=== PATIENT | male | born 1955 | race Caucasian/White ===

== ENCOUNTER 2025-01-22 16:08 | Emergency (ER) | payer MEDICARE, SELFPAY ==
[2025-01-22 16:11] VITALS: BP 164/101
[2025-01-22 16:26] LABS: % Basophils 0.5 % (0-2); % Immature Granulocytes 0.1 % (0-0.5); % Lymphocytes 33.1 % (20.5-51.1); % Monocytes 9.5 % (1.7-9.3); % Neutrophils 55.8 % (42.2-75.2); Absolute Eosinophils 0.1 10^3/uL (0-0.7); Absolute Lymphocytes 2.6 10^3/uL (1.2-3.4); Absolute Monocytes 0.8 10^3/uL (0.1-0.6); Absolute Neutrophils 4.5 10^3/uL (1.4-6.5); Hematocrit 39.1 % (39.0-52.0); Hemoglobin 13.1 g/dL (13.0-18.0); Mean Corp Hgb Conc. 33.5 g/dL (33.0-37.0); Mean Corpuscular Hgb 29.2 pg (27.0-31.0); Mean Corpuscular Volume 87.1 fL (80.0-94.0); Mean Platelet Volume 10.5 fL (7.4-10.4); Nucleated Red Blood Cells % 0 % (-); Platelet Count 219 10^3/uL (130-400); Red Blood Cell Count 4.49 10^6/uL (4.70-6.10); Red Cell Dist. Width 13.4 % (11.5-14.5)
[2025-01-22 16:40] LABS: ALT (SGPT) 20 U/L (0-50); AST (SGOT) 22 U/L (17-59); Albumin 4.4 g/dl (3.5-5.0); Alkaline Phosphatase 48 U/L (38-126); Blood Urea Nitrogen 17 mg/dl (9-20); Carbon Dioxide 27 mmol/L (22-30); Chloride 108 mmol/L (98-107); Glucose 108 mg/dl (70-99); Lipase 79 U/L (23-300); Potassium 4.3 mmol/L (3.5-5.1); Sodium 142 mmol/L (135-145); Total Bilirubin 0.3 mg/dl (0.2-1.3); Total Protein 7.6 g/dl (6.3-8.2); eGFR > 60.00
--- NOTE | 2025-01-22 19:15 | ED.GENMED ---
History of Present Illness
General
Chief Complaint: Abdominal Symptoms
Source: patient
Exam Limitations: none
Time Seen by Provider: 01/22/25 19:00
Nursing documentation reviewed up to this point in time: agreed with
History of Present Illness
History of Present Illness:
The patient is an 69-year-old man who reports that his picked wild mushrooms outside his home and cooked them. Patient reports that he consumed about 1 mushroom at around noon today. Patient reports that around 1:00 he developed frequent
episodes of nausea and vomiting. Patient reports it has been about 3 hours since he has had any vomiting. Patient reports he feels completely well at this time. He denies any fever, chest pain, and shortness of breath. He reports that his
also got sick around the same time and experienced dizziness, visual changes and 'felt drunk'. Patient denies headache and rash.
Past History
Past History
ED Past Medical History: None
ED Past Surgical History: Other
Social History
Tobacco: Non-smoker
Alcohol: Other
Drug: None
Personal:
Living: with family
Employment: Other
Family History
Family History: Other
Review of Systems
Review of Systems
Allergies reviewed?: Yes
All Other Systems: ROS reviewed and negative except as documented in HPI and ROS
Constitutional: Reports no symptoms
EENT: Reports no symptoms
Respiratory: Reports no symptoms
Cardiac: Reports no symptoms
ABD/GI: Reports nausea and vomiting
: Reports no symptoms
Musculoskeletal: Reports no symptoms
Skin: Reports no symptoms
Neurological: Reports no symptoms
Endocrine: Reports no symptoms
Hematologic/Lymphatic: Reports no symptoms
Psychiatric: Reports no symptoms
Phy Exam
Physical Exam
Physical Exam:
Physical Exam
General: no apparent distress, not acutely ill. Well appearing, smiling and conversational
Neck: supple. no meningeal signs. normal psoterior pharynx
Heart: s1/s2 regular rate and rhythm, no murmur. equal radial pulses.
Lungs: no acute respiratory distress. clear bilaterally
Abdomen: normal bowel sounds. not tender. no CVAT. Soft, nondistended and nontender throughout
Neuro: alert and oriented. no focal neurological deficits
Skin: no rash
Psychiatric: well kept. interactive and cooperative
Extremities: no edema. no calf tenderness. negative homans. good distal pulses
Course
Orders/Labs/Results
Orders:
Orders
01/22/25 16:18
Complete Blood Count/With Diff Urgent
Comprehensive Metabolic Panel Urgent
Lipase Urgent
Abnormal Lab Results
01/22/25
16:18
RBC 4.49 L 10^6/uL
(4.70-6.10)
MPV 10.5 H fL
(7.4-10.4)
Absolute Monos (auto) 0.8 H 10^3/uL
(0.1-0.6)
Monocytes % 9.5 H %
(1.7-9.3)
Chloride 108 H mmol/L
(98-107)
Glucose 108 H mg/dl
(70-99)
01/22/25 16:18
01/22/25 16:18
Vital Signs
Initial and Last Documented VS:
Initial Vital Signs
Temp Pulse Resp BP Pulse Ox
98.0 F 67 18 164/101 96
01/22/25 16:11 01/22/25 16:11 01/22/25 16:11 01/22/25 16:11 01/22/25 16:11
Last Documented Vital Signs
Temp Pulse Resp BP Pulse Ox
98.0 F 67 18 164/101 96
01/22/25 16:11 01/22/25 16:11 01/22/25 16:11 01/22/25 16:11 01/22/25 16:11
MDM/Problems Addressed
Differential Diagnosis Includes:
Acute gastritis, acute cholecystitis, mushroom toxicity
MDM/Problems Addressed:
Patient presents with acute vomiting that is now resolved
Acute Exacerbation and/or Progression of Chronic Illness:
Patient is acutely hypertensive, likely due to being in the ED. Patient admits he is embarrassed for eating mushrooms
*Pulse Oximetry
Patient hypoxic: no
*EKG
Interpreted by ED Provider?: NA
*Validation Technician Interpretation
Rate: Validation Technician- N/A
*Critical Care Note
Total Time (30-74mins, 75-104mins- exclusive of procedures): Not Applicable
Data Reviewed
Source: patient
Patient Management
Social determinants of health affecting care: Living situation and Strong social support
Discussion with other providers: Other (Case discussed thoroughly with Dr. Morin, regulatory affairs portfolio leader at [facility]. Given that patient is asymptomatic for several hours and has normal blood work, Dr. Morin feels patient can safely go home and
return for any neurological symptoms such as dizziness, headache or vomiting.)
Escalation/DeEscalation of care consider admission/obs:
Patient remains extremely well-appearing and asymptomatic in the ED with normal renal function, LFTs and no sign of neurological abnormalities or complaints. Therefore, he is safe to go home. Patient told to return with any neurological concerns
such as severe headache, dizziness, or confusion. Patient also told to not consume mushrooms outside of his supermarket unless he is very confident that he knows they are safe to eat.
ED Attending Note
-
Portions of this chart may have been created with voice recognition software.� Occasional wrong word or��sound alike� substitutions may have occurred due to the inherent limitations of voice recognition software.
Discharge Plan
Departure
Patient Disposition: Home (Routine Discharge)
Date of Disposition: 01/22/25
Time of Disposition: 19:45
Patient with high blood pressure during this ER visit?: Yes
Condition: Good
Covid-19: Not Applicable
Discharge Problem:
Toxic effect of ingested mushroom
Instructions: Acute Nausea and Vomiting
Activity Restrictions/Additional Instructions:
Please return with any recurrence of vomiting. It is important that you also return to the emergency department if you develop any confusion, dizziness, abdominal pain or difficulty breathing. Do not consume mushrooms outside the supermarket
unless you are sure they are safe to eat
Interventions
Interventions:
*Risk Screen - Suicide Last Done: 01/22/25 19:26
*General Assessment Last Done: 01/22/25 16:11
*Neglect/Abuse Screening Last Done: 01/22/25 19:17
*ED- Fall Risk Assessment Last Done: 01/22/25 19:17
*ED COVID-19 Vaccine History Last Done: 01/22/25 19:17
MT-Axhwvy-Jtamjggxpn Assessment Last Done: 01/22/25 19:26
Discharge Date and Time
Print Language: POLISH
[2025-01-22 19:59] VITALS: BP 163/96
== END 2025-01-22 20:13 | disposition home or self-care (01) ==
LOC: EMR 16:08
PROVIDERS: Emergency Medicine; EMERGENCY PHYSICIAN Emergency Medicine
DX: T62.0X1A Toxic effect of ingested mushrooms, accidental (unintentional), initial encounter (principal); Y92.9 Unspecified place or not applicable; I10 Essential (primary) hypertension
CPT/HCPCS: 99283; 80053; 83690; 85025